=== PATIENT | female | born 1995 | race African-American/Black ===

== ENCOUNTER 2016-04-28 16:12 | Emergency (ER) | payer BC ==
[~2016-04-28] VITALS: Ht 154.9 cm; Wt 50.0 kg
[2016-04-28 16:14] VITALS: BP 153/78; PULSE 105; RESP 14; TEMP 98.3; O2SAT 100
[2016-04-28 17:08] LABS: BLOOD, URINE MOD (NEG); COMMENT (UR) CULT NOT INDICATED; CULTURE IF INDICATED CULT NOT INDICATED; GLUCOSE,URINE NEG (NEG); KETONE, URINE NEG (NEG); NITRITE,URINE NEG (NEG); SQUAMOUS EPITHELIAL CELL URINE 1 /hpf (0-5); URINE COLOR LIGHT-YELLOW (YELLW/STRAW)
--- NOTE | 2016-04-28 21:50 | PD ---
HPI Chief Complaint: Certified Ophthalmic Technician Problem/Complaint Time Seen by Provider: 21:50 Travel History International Travel<30 days: No Contact w/Intl Traveler<30days: No Traveled to known affect area: No History of Present Illness HPI 20-year-old female presents to the ED for evaluation of 3 day history of vulvar lesions and dysuria. Patient denies fever, chills, abdominal pain, nausea, vomiting, increased urinary urgency, hematuria, back pain. She endorses unprotected sex with male partner approximately one month ago. Patient states that she has implanted Nexplanon, has been spotting for approximately 3 weeks. Endorses risk of . PFSH Past Medical History ?: Not LMP: 03/09/2017 Social History Tobacco Use: No Allergies-Medications (Allergen,Severity, Reaction): Coded Allergies: No Known Allergies (Unverified , 04/28/16) Reported Meds & Prescriptions Reported Meds & Active Scripts Active Acyclovir 200 Mg Cap 200 Mg PO 5 TIMES A DAY 10 Days Review of Systems Except as stated in HPI: all other systems reviewed are Neg Physical Exam Narrative GENERAL: Well-nourished, well-developed anxious black female in no acute distress.. SKIN: Warm and dry. HEAD: Normocephalic. EYES: No scleral icterus. No injection or drainage. NECK: Supple, trachea midline. No JVD or lymphadenopathy. CARDIOVASCULAR: Regular rate and rhythm without murmurs, gallops, or rubs. 2+ DP and radial pulses bilaterally. RESPIRATORY: Breath sounds clear and equal bilaterally. No accessory muscle use. GASTROINTESTINAL: Abdomen soft, non-tender, nondistended. Active bowel sounds. GENITOURINARY: Normal external genitalia. 2 unroofed erythematous, tender vesicular lesions of the left labia majora, one erythematous, tender vesicular lesion of the right labia majora. Suspect HSV. Vaginal vault small amount of blood, thick white drainage. Unable to evaluate cervical os secondary to patient's discomfort. No cervical motion tenderness. Uterus nontender and nonenlarged. Bilateral adnexa nontender without masses. MUSCULOSKELETAL: No cyanosis, or edema. BACK: Nontender without obvious deformity. No CVA tenderness. Data Data Last Documented VS Vital Signs Date Time Temp Pulse Resp B/P Pulse Ox O2 Delivery O2 Flow Rate FiO2 04/28/16 21:54 95 18 137/90 99 Room Air 04/28/16 16:14 98.3 Orders Urinalysis - C+S If Indicated (04/28/16 16:24) Ed Urine Pregnancytest Poc (04/28/16 16:24) Gc And Chlamydia Pcr (04/28/16 22:07) Wet Prep Profile (04/28/16 22:07) Azithromycin Powd Pack (Zithromax Powd P (04/28/16 23:15) Ceftriaxone Inj (Rocephin Inj) (04/28/16 23:15) Lidocaine 1% Inj (50 Ml) (Xylocaine 1% I (04/28/16 23:15) Herpes Simplex Virus Culture (04/28/16 23:11) Labs Laboratory Tests Test 04/28/16 04/28/16 16:45 22:56 Urine Color LIGHT-YELLOW Urine Turbidity CLEAR Urine pH 8.0 Urine Specific [place] 1.010 Urine Protein NEG mg/dL Urine Glucose (UA) NEG mg/dL Urine Ketones NEG mg/dL Urine Occult Blood MOD Urine Nitrite NEG Urine Bilirubin NEG Urine Urobilinogen LESS THAN 2.0 MG/DL Urine Leukocyte Esterase LARGE Urine RBC 3 /hpf Urine WBC 5 /hpf Urine Squamous Epithelial 1 /hpf Cells Microscopic Urinalysis Comment CULT NOT INDICATED Clue Cells (Wet Prep) NONE SEEN Vaginal Trichomonas (Wet Prep) NONE SEEN Vaginal Yeast (Wet Prep) NONE SEEN Chlamydia trachomatis DNA NOT DETECTED (PCR) Neisseria gonorrhoeae DNA NOT DETECTED (PCR) MDM Medical Decision Making Medical Screen Exam Complete: Yes Emergency Medical Condition: Yes Differential Diagnosis HSV-1 versus HSV-2 versus gonorrhea versus chlamydia versus vulvovaginal candidiasis versus cystitis versus pyelonephritis versus versus other Narrative Course 20-year-old female presents to the ED for evaluation of 3 day history of vulvar lesions and dysuria. Patient denies fever, chills, abdominal pain, nausea, vomiting, increased urinary urgency, hematuria, back pain. She endorses unprotected sex with male partner approximately one month ago. Patient states that she has implanted Nexplanon, has been spotting for approximately 3 weeks. Endorses risk of . Vitals reviewed. Physical exam reveals mild suprapubic tenderness, labial lesions that are suspicious for HSV, thick white vaginal discharge. UA: No culture indicated UPT:negative Wet prep: Negative GC/ Chlamydia: Pending Viral HSV culture: Pending I discussed empiric treatment for gonorrhea and chlamydia which the patient agreed to at this time. She is administered Rocephin and azithromycin. She is prescribed 250 acyclovir 4 times a day 10 days. She was given instructions to follow up with the health department for complete STD screening. She indicated understanding of instructions. She is amenable to plan of care. She is stable and discharged home. Diagnosis Primary Impression: Genital herpes Qualified Code: A60.04 - Herpes simplex vulvovaginitis Referrals: [facility] [employer] Patient Instructions: Chlamydia (ED), General Instructions, Genital Herpes Simplex (ED), Gonorrhea (ED) Additional Instructions: Rest, hydrate. Practice SAFER SEX. Use condoms with EVERY sexual encounter. Begin taking Valtrex today. Take as prescribed. Suppression of herpes outbreak may require long-term medications. These can be obtained at the Health Department. You were treated prophylactically for gonorrhea and chlamydia today. This treatment requires a test of cure. The test of cure can be acquired at the Health Department. No sexual activity until test of cure is resulted. Follow up with the health department and the getter welder this week. Return to the ED for any urgent or emergent medical condition. Med/Other Pt SpecificInfo: Prescription(s) given Scripts Acyclovir 200 Mg [id number] Mg PO 5 TIMES A DAY 10 Days Ref 0 Prov:Radha Hogan MD 04/28/16 Disposition: 01 DISCHARGE HOME Condition: Stable Lidya Henderson Apr 28, 2016 21:50
[2016-04-28 21:54] VITALS: BP 137/90; PULSE 95; RESP 18; O2SAT 99
[2016-04-28] MEDS ORDERED: AZITHROMYCIN PWD FOR SUSP 1 GM PACKET PO ONE (23:15)
[2016-04-28] MEDS ORDERED: cefTRIAXone 250 MG VIAL IM ONE (23:15)
[2016-04-28] MEDS ORDERED: LIDOCAINE HCL 1% 50 ML VIAL IM ONE (23:15)
[2016-04-28] MEDS ORDERED: ACYC200C66 PO (23:17)
[2016-04-29 00:55] LABS: CHLAMYDIA PCR NOT DETECTED (NOT DETECT); NEISSERIA PCR NOT DETECTED (NOT DETECT)
== END 2016-04-29 00:30 | disposition home or self-care (01) ==
LOC: NEPC 16:12
DX: A60.04 Herpesviral vulvovaginitis (principal); R30.0 Dysuria
CPT/HCPCS: 81001; 84703; 87210; 87255; 87491; 87591; 96372; 99283; J0696